=== PATIENT | male | born 1960 | race Asian ===

== ENCOUNTER 2019-02-04 08:27 | Day surgery (SDC) | payer BC ==
[~2019-02-04] VITALS: Ht 172.7 cm; Wt 72.7 kg
[2019-02-04 09:03] VITALS: BP 122/82; PULSE 69; TEMP 98.6
[2019-02-04 10:25] VITALS: BP 103/77; PULSE 61; TEMP 97.8
--- NOTE | 2019-02-04 10:25 | NUR ---
Pt returns from endo procedure via cart. Pt ambulates from cart to recliner with RN assist. Monitors on and alarms set. Call light within reach. Pt alert and answering all questions appropriately. Report received from CUATE Martin. Pt requests juice and crackers. Pt voices no complaints of pain or nausea. No family present.
[2019-02-04 10:30] VITALS: BP 113/75; PULSE 62
[2019-02-04 10:45] VITALS: BP 118/80; PULSE 64
--- NOTE | 2019-02-04 10:45 | NUR ---
Pt taking food and drink well. No complaints voiced.
[2019-02-04 11:00] VITALS: BP 118/83; PULSE 64
[2019-02-04 11:15] VITALS: BP 117/90; PULSE 60
--- NOTE | 2019-02-04 11:30 | NUR ---
Discharge instructions given to patient. All questions answered to his satisfaction. Handed to him are a thank you card, patient satisfaction card, discharge instructions, diagnosis information, procedural photos, and a discharge med sheet.
--- NOTE | 2019-02-04 11:40 | NUR ---
Pt transferred out of the hospital via wheelchair and this RN to private vehicle driven by friend.
== END 2019-02-04 11:40 | disposition home or self-care (01) ==
LOC: SDCO 08:27
DX: Z12.11 Encounter for screening for malignant neoplasm of colon (principal); K63.5 Polyp of colon; E78.00 Pure hypercholesterolemia, unspecified; K58.9 Irritable bowel syndrome, unspecified
CPT/HCPCS: J2250; J3010; J7030